=== PATIENT | male | born 1995 | race Hispanic/Latino ===

== ENCOUNTER 2025-11-02 00:17 | Inpatient (IN) | payer OTHER, SELFPAY ==
[2025-11-02 01:34] LABS: #Basophils Less than 0.03 10x3/uL (0.0-0.2); #Eosinophils 0.14 10x3/uL (0.0-0.7); #Monocytes 0.47 10x3/uL (0.11-0.59); #Neutrophils 6.05 10x3/uL (1.40-6.50); %Basophils 0.2 % (0.0-1.0); %Eosinophils 1.6 % (0.0-10.0); %Lymphocytes 23.2 % (21.0-51.0); %Monocytes 5.4 % (0.0-10.0); %Neutrophils 69.3 % (42.0-75.0); Hematocrit 41.1 % (42.0-52.0); Hemoglobin 14.2 g/dL (14.0-18.0); Mean Corpuscular Hemoglobin 30.0 pg (27.0-31.0); Mean Corpuscular Volume 86.7 fL (78.0-98.0); Platelet Count 290 10x3/uL (130-400); Red Blood Cell (RBC) Count 4.74 mill/uL (4.70-6.10); White Blood Cell (WBC) Count 8.74 10x3/uL (4.8-10.8)
[2025-11-02 01:57] LABS: ALT (SGPT) 13 U/L (Less than 45); AST (SGOT) 34 U/L (11-34); Albumin 1.1 g/dL (3.1-4.5); Alkaline Phosphatase 62 U/L (40-110); Anion Gap 10 mmol/L (10-20); BUN (Urea Nitrogen) 16 mg/dL (8.9-20.6); Bilirubin, Total 0.1 mg/dL (0.3-1.2); Calc. Creatinine Clearance 0 mL/min (70-130); Calcium 7.6 mg/dL (7.8-10.44); Carbon Dioxide 26 mmol/L (22-29); Chloride 104 mmol/L (98-107); Globulin 3.4 g/dL (2.4-3.5); Glucose 97 mg/dL (70-105); Lipase 17 U/L (8-78); Potassium 4.2 mmol/L (3.5-5.1); Sodium 136 mmol/L (136-145)
[2025-11-02 02:42] LABS: BHCG - Serum Negative; Pregs Control Background? CLEAR/WHITE (CLR/WHITE); Pregs Control Bar Appear? YES (CONTROL BAR)
[2025-11-02 04:14] LABS: Magnesium 1.8 mg/dL (1.6-2.6)
[2025-11-02] MEDS ORDERED: Heparin 5,000 UNITS/ML VIAL ONE (06:05)
[2025-11-02] MEDS ORDERED: Furosemide 40 MG (4 mL) VIAL ONE (06:35)
[2025-11-02] MEDS ORDERED: VANCOMYCIN 2 GRAM/400 ML BAG 400 ML ONE (06:35)
[2025-11-02] MEDS ORDERED: Senokot S 8.6-50 MG TAB PO PRN (06:50)
[2025-11-02] MEDS ORDERED: Bisacodyl 10 MG SUPP PR PRN (06:50)
[2025-11-02] MEDS ORDERED: Ondansetron PF 4 MG/2 ML Vial IVP PRN (06:50)
[2025-11-02] MEDS ORDERED: Acetaminophen 325 MG TAB PO PRN (06:50)
[2025-11-02 07:00] LABS: INR-International Normal Ratio 1.0; Prothrombin Time 13.5 sec (12.0-14.7)
[2025-11-02] MEDS ORDERED: Electrolyte Replacement Protocol 1 EACH FS SCH (07:00)
[2025-11-02] MEDS ORDERED: PHOS-NAK 1 PKT PACK PO PRN (07:00)
[2025-11-02] MEDS ORDERED: Magnesium Sulfate In Water 4 GM in Premix 1 BAG IVPB PRN (07:00)
[2025-11-02] MEDS ORDERED: Potassium Chloride 20 MEQ in Premix 1 BAG IVPB PRN (07:00)
[2025-11-02] MEDS ORDERED: Heparin 10,000 UNITS/ 10 ML VIAL SLOW IVP SCH (07:00)
[2025-11-02 07:01] LABS: PTT 46.2 sec (22.9-36.1)
[2025-11-02] MEDS ORDERED: Benzonatate 100 MG CAP ONE (08:58)
[2025-11-02] MEDS ORDERED: Azithromycin 250 MG TAB ONE (08:58)
[2025-11-02] MEDS: Benzonatate 100 MG CAP PO SCH (09:03)
[2025-11-02] MEDS: Azithromycin 250 MG TAB PO SCH (09:03)
[2025-11-02] MEDS ORDERED: cefTRIAXone (ROCEPHIN) 1 GM VIAL ONE (12:06)
[2025-11-02] MEDS: cefTRIAXone\\ROCEPHIN 1 GM in Sodium Chloride 0.9% 100 ML IVPB SCH (12:16)
[2025-11-02 13:01] LABS: Hematocrit 37.5 % (42.0-52.0); Hemoglobin 12.8 g/dL (14.0-18.0); Platelet Count 254 10x3/uL (130-400)
[2025-11-02 13:43] LABS: PTT 178.0 sec (22.9-36.1)
[2025-11-02] MEDS ORDERED: Furosemide 40 MG (4 mL) VIAL SLOW IVP SCH (14:00)
[2025-11-02] MEDS ORDERED: Iopamidol 370 76% 100 ML VIAL ONE (14:33)
[2025-11-02] MEDS: FLU (Fluarix Triv) 25-26 (6MOS UP)/PF 45 MCG/0.5 ML Syringe IM ONE (16:17)
[2025-11-02 16:54] VITALS: BMI 32.1
[2025-11-02] MEDS: Furosemide 100 MG (10 mL) VIAL SLOW IVP SCH (17:27)
[2025-11-02 19:10] LABS: Protein, Urine Random Quant 156.0 mg/dL (1-14)
[2025-11-02 19:15] LABS: Legionella Urinary Ag Negative (Negative); Strep pneumo Urine Ag NEGATIVE (NEGATIVE)
[2025-11-03 07:03] LABS: #Basophils Less than 0.03 10x3/uL (0.0-0.2); #Eosinophils 0.36 10x3/uL (0.0-0.7); #Monocytes 0.41 10x3/uL (0.11-0.59); #Neutrophils 2.71 10x3/uL (1.40-6.50); %Basophils 0.3 % (0.0-1.0); %Eosinophils 5.4 % (0.0-10.0); %Lymphocytes 47.6 % (21.0-51.0); %Monocytes 6.1 % (0.0-10.0); %Neutrophils 40.5 % (42.0-75.0); Hematocrit 37.6 % (42.0-52.0); Hemoglobin 13.5 g/dL (14.0-18.0); Mean Corpuscular Hemoglobin 30.2 pg (27.0-31.0); Mean Corpuscular Volume 84.1 fL (78.0-98.0); Platelet Count 260 10x3/uL (130-400); Red Blood Cell (RBC) Count 4.47 mill/uL (4.70-6.10); White Blood Cell (WBC) Count 6.70 10x3/uL (4.8-10.8)
[2025-11-03 07:05] LABS: ALT (SGPT) 10 U/L (Less than 45); AST (SGOT) 20 U/L (11-34); Albumin 0.9 g/dL (3.1-4.5); Alkaline Phosphatase 53 U/L (40-110); Anion Gap 12 mmol/L (10-20); BUN (Urea Nitrogen) 10 mg/dL (8.9-20.6); Bilirubin, Total 0.1 mg/dL (0.3-1.2); Calc. Creatinine Clearance 146 mL/min (70-130); Calcium 7.6 mg/dL (7.8-10.44); Carbon Dioxide 25 mmol/L (22-29); Chloride 104 mmol/L (98-107); Globulin 3.1 g/dL (2.4-3.5); Glucose 82 mg/dL (70-105); Potassium 3.1 mmol/L (3.5-5.1); Sodium 138 mmol/L (136-145)
[2025-11-03] MEDS: Losartan 25 MG TAB PO SCH (13:12)
[2025-11-03] MEDS: Guaifenesin DM 100-10/5 ML UDCUP PO PRN (20:03)
[2025-11-04 05:41] LABS: #Basophils 0.03 10x3/uL (0.0-0.2); #Eosinophils 0.43 10x3/uL (0.0-0.7); #Monocytes 0.44 10x3/uL (0.11-0.59); #Neutrophils 2.81 10x3/uL (1.40-6.50); %Basophils 0.4 % (0.0-1.0); %Eosinophils 6.2 % (0.0-10.0); %Lymphocytes 46.2 % (21.0-51.0); %Monocytes 6.4 % (0.0-10.0); %Neutrophils 40.7 % (42.0-75.0); Hematocrit 37.3 % (42.0-52.0); Hemoglobin 13.0 g/dL (14.0-18.0); Mean Corpuscular Hemoglobin 29.9 pg (27.0-31.0); Mean Corpuscular Volume 85.7 fL (78.0-98.0); Platelet Count 278 10x3/uL (130-400); Red Blood Cell (RBC) Count 4.35 mill/uL (4.70-6.10); White Blood Cell (WBC) Count 6.91 10x3/uL (4.8-10.8)
[2025-11-04 06:02] LABS: Anion Gap 7 mmol/L (10-20); BUN (Urea Nitrogen) 12 mg/dL (8.9-20.6); Calc. Creatinine Clearance 149 mL/min (70-130); Calcium 7.5 mg/dL (7.8-10.44); Carbon Dioxide 27 mmol/L (22-29); Chloride 106 mmol/L (98-107); Glucose 85 mg/dL (70-105); Potassium 2.9 mmol/L (3.5-5.1); Sodium 137 mmol/L (136-145)
[2025-11-04 08:13] LABS: Hematocrit 37.6 % (42.0-52.0); Hemoglobin 13.3 g/dL (14.0-18.0); Platelet Count 274 10x3/uL (130-400)
[2025-11-04] MEDS: Losartan 25 MG TAB PO SCH (10:24)
[2025-11-04 11:34] LABS: Magnesium 1.9 mg/dL (1.6-2.6)
[2025-11-04] MEDS: Albumin 25% 25 GM (100 mL) BOT IVPB SCH ×2 (16:44→20:07)
[2025-11-04 19:17] LABS: Glucose, Urine (Dipstick) Normal (Negative); Leukocyte Negative Leu/uL (Negative); Protein, Urine (Dipstick) 300 mg/dL (Neg-Trace); Specific Gravity, Urine 1.012 (1.002-1.036); WBC/HPF 0-3 HPF (0-3)
[2025-11-04 19:24] LABS: Bacteria/HPF 1+ HPF (None Seen)
[2025-11-05 04:39] LABS: #Basophils Less than 0.03 10x3/uL (0.0-0.2); #Eosinophils 0.38 10x3/uL (0.0-0.7); #Monocytes 0.54 10x3/uL (0.11-0.59); #Neutrophils 4.67 10x3/uL (1.40-6.50); %Basophils 0.1 % (0.0-1.0); %Eosinophils 5.1 % (0.0-10.0); %Lymphocytes 24.7 % (21.0-51.0); %Monocytes 7.2 % (0.0-10.0); %Neutrophils 62.6 % (42.0-75.0); Hematocrit 35.4 % (42.0-52.0); Hemoglobin 12.1 g/dL (14.0-18.0); Mean Corpuscular Hemoglobin 29.7 pg (27.0-31.0); Mean Corpuscular Volume 86.8 fL (78.0-98.0); Platelet Count 318 10x3/uL (130-400); Red Blood Cell (RBC) Count 4.08 mill/uL (4.70-6.10); White Blood Cell (WBC) Count 7.46 10x3/uL (4.8-10.8)
[2025-11-05 05:18] LABS: Anion Gap 12 mmol/L (10-20); BUN (Urea Nitrogen) 10 mg/dL (8.9-20.6); Calc. Creatinine Clearance 136 mL/min (70-130); Calcium 8.1 mg/dL (7.8-10.44); Carbon Dioxide 22 mmol/L (22-29); Chloride 109 mmol/L (98-107); Glucose 93 mg/dL (70-105); Magnesium 1.9 mg/dL (1.6-2.6); Potassium 3.2 mmol/L (3.5-5.1); Sodium 140 mmol/L (136-145)
[2025-11-05] MEDS: Furosemide 100 MG (10 mL) VIAL SLOW IVP SCH (05:27)
[2025-11-05 10:35] LABS: Potassium 3.8 mmol/L (3.5-5.1)
[2025-11-05] MEDS: Albumin 25% 25 GM (100 mL) BOT IVPB SCH (11:16)
[2025-11-05 15:27] VITALS: BP 126/89; TEMP 98.1
== END 2025-11-05 16:11 | disposition home or self-care (01) | DRG 175 ==
LOC: ERS 00:17 → ERHOLD 06:10 → 2NO 16:36
PROVIDERS: ADMIT Internal Medicine; ATTEND Internal Medicine
PROC: 30233J1 Transfusion of Nonautologous Serum Albumin into Peripheral Vein, Percutaneous Approach (ICD-10-PCS; principal; 2025-11-04)
PROC: 3E03329 Introduction of Other Anti-infective into Peripheral Vein, Percutaneous Approach (ICD-10-PCS; 2025-11-05)
DX: I26.99 Other pulmonary embolism without acute cor pulmonale (principal); J18.9 Pneumonia, unspecified organism; N17.9 Acute kidney failure, unspecified; N12 Tubulo-interstitial nephritis, not specified as acute or chronic; E88.09 Other disorders of plasma-protein metabolism, not elsewhere classified; N18.30 Chronic kidney disease, stage 3 unspecified; D63.1 Anemia in chronic kidney disease; I12.9 Hypertensive chronic kidney disease with stage 1 through stage 4 chronic kidney disease, or unspecified chronic kidney disease; E87.6 Hypokalemia; Z86.718 Personal history of other venous thrombosis and embolism; R80.9 Proteinuria, unspecified
CPT/HCPCS: 36415; 36416; 71045; 71275; 74177; 80048; 80053; 81003; 81015; 82570; 83605; 83690; 83735; 83880; 84132; 84156; 84484; 84703; 85014; 85018; 85025; 85049; 85610; 85730; 87040; 87070; 87205; 87428; 87449; 87899; 94640; 96365; 96375; J0696; J1644; J1940; J2272; J2543; J3375; P9047; Q9967